=== PATIENT | female | born 1945 | race Caucasian/White ===

== ENCOUNTER → 2016-09-06 | Outpatient (CLI) | payer MEDICARE, OTHER ==
[~2016-09-06] MED LIST: ACYC1CAP16 PO; ALBU1AER INH; ASPI81TA11 PO; CLAR10TA7 PO; E 101000 PO; GLUC1500 PO; LOVA20TA PO; MECL-62 PO; MOME17I; OMEG100037 PO; TAB-TAB PO; VITA200T2 PO; [UNRECOGNIZED DRUG - CODE] PO
[2016-09-06 10:21] LABS: BICARBONATE 27.4 MEQ/L (21.0-32.0); HDL CHOLESTEROL 66.8 MG/DL (40.0-60.0); POTASSIUM 4.1 MEQ/L (3.5-5.1)
== END ==
LOC: PLAB 07:44
PROVIDERS: ATTEND Family Medicine
DX: I10 Essential (primary) hypertension (principal); Z13.1 Encounter for screening for diabetes mellitus
CPT/HCPCS: 36415; 80048; 80061; 84460

== ENCOUNTER → 2017-03-01 | Outpatient (CLI) | payer MEDICARE, OTHER ==
[2017-03-01 13:04] LABS: HDL CHOLESTEROL 62.9 MG/DL (40.0-60.0)
== END ==
LOC: PLAB 07:52
PROVIDERS: ATTEND Family Medicine
DX: E78.00 Pure hypercholesterolemia, unspecified (principal)
CPT/HCPCS: 36415; 80061; 84460

== ENCOUNTER → 2017-09-01 | Outpatient (CLI) | payer MEDICARE, OTHER ==
[~2017-09-01] MED LIST changes: -GLUC1500 PO; +GLUCOSAMINE1500 COM PO
[2017-09-01 10:44] LABS: BICARBONATE 29.5 MEQ/L (21.0-32.0); CALCIUM 8.9 MG/DL (8.5-10.1); CREATININE 0.67 MG/DL (0.50-1.00)
[2017-09-01 10:50] LABS: CHOLESTEROL/ HDL RATIO 2.92 RATIO; HDL CHOLESTEROL 62.3 MG/DL (40.0-60.0)
== END ==
LOC: PLAB 07:49
PROVIDERS: ATTEND Family Medicine
DX: I10 Essential (primary) hypertension (principal); E78.00 Pure hypercholesterolemia, unspecified; Z13.1 Encounter for screening for diabetes mellitus
CPT/HCPCS: 36415; 80048; 80061; 84460